=== PATIENT | male | born 1985 | race Caucasian/White ===

== ENCOUNTER 2019-09-23 16:05 | Emergency (ER) | payer OTHER ==
[2019-09-23] MEDS ORDERED: DIPH/PERTUSS(ACELL)/TETANUS VAC/PF 0.5 ML SYR (>=10YO) IM ONE (16:17)
[2019-09-23] MEDS ORDERED: HYDROCODONE/ACETAMINOPHEN 5-325 MG TABLET PO ONE (16:17)
--- NOTE | 2019-09-23 16:20 | ER Document Report ---
ED Medical Screen (RME) - General Chief Complaint: Hand Injury Stated Complaint: RIGHT HAND INJURY/FAN BLADE SLICES Time Seen by Provider: 09/23/19 16:16 Primary Care Provider: TARA ARIAS MD [Primary Care Provider] - Follow up as needed Mode of Arrival: Ambulatory Information source: Patient Notes: HPI; 33-year-old male no previous medical problems presents emergency room after cutting his right hand and right thumb on a fan blade at work. Bleeding is persistent. Unknown last tetanus shot. Patient is right-handed. PE: Alert and oriented x3, anxious, there is a laceration over the dorsal mid aspect of the right hand. There is also deformity of the right thumb unable to fully visualize the laceration to the right thumb. Positive right radial pulse. I have greeted and performed a rapid initial assessment of this patient. A comprehensive ED assessment and evaluation of the patient, analysis of test results and completion of the medical decision making process will be conducted by additional ED providers. I have specifically instructed the patient or family members with the patient to immediately return to any nursing staff should anything change in the patient's condition or with their chief complaint. TRAVEL OUTSIDE OF THE [place] IN LAST 30 DAYS: No - Related Data Allergies/Adverse Reactions: No Known Allergies Allergy (Verified 01/10/14 16:31) Past Medical History - Past Medical History Cardiac Medical History: Reports: Hx Hypercholesterolemia, Hx Hypertension Denies: Hx Congestive Heart Failure, Hx Heart Attack Pulmonary Medical History: Denies: Hx Asthma, Hx Bronchitis, Hx COPD, Hx Pneumonia, Hx Tuberculosis Neurological Medical History: Denies: Hx Seizures, Hx Parkinson's Disease Renal/ Medical History: Denies: Hx Benign Prostatic Hyperplasia, Hx End Stage Renal Disease, Hx Kidney Stones GI Medical History: Denies: Hx Cirrhosis, Hx Gastroesophageal Reflux Disease, Hx Ulcer Musculoskeltal Medical History: Denies Hx Arthritis, Denies Hx Multiple Sclerosis Psychiatric Medical History: Denies: Hx Bipolar Disorder, Hx Depression, Hx Schizophrenia Past Surgical History: Reports: Hx Pancreatic Surgery - right leg, Hx TonsillectomyComment Only: Hx Orthopedic Surgery - tibal nail, plates and screws in R leg. - Immunizations Hx Diphtheria, Pertussis, Tetanus Vaccination: Yes Doctor's Discharge - Discharge Referrals: TARA ARIAS MD [Primary Care Provider] - Follow up as needed
--- NOTE | 2019-09-23 17:01 | RADIOLOGY REPORT (SQ) ---
EXAM DESCRIPTION: HAND RIGHT 3 VIEWS IMAGES COMPLETED DATE/TIME: 09/23/2019 4:47 pm REASON FOR STUDY: laceration/injury COMPARISON: None. EXAM PARAMETERS: NUMBER OF VIEWS: Three views. TECHNIQUE: AP, lateral and oblique radiographic images acquired of the right hand. LIMITATIONS: Bandage material overlies the hand. FINDINGS: MINERALIZATION: Normal. BONES: No acute fracture or dislocation. No worrisome bone lesions. JOINTS: No effusions. SOFT TISSUES: Soft tissue swelling about the hand. No definitive radiopaque foreign body. OTHER: No other significant finding. IMPRESSION: Bandage material overlies the hand and somewhat obscures fine detail. No evidence of ac zuni bony abnormality or radiopaque foreign body. TECHNICAL DOCUMENTATION: JOB ID: [id number] 2010 [email or web address]- All Rights Reserved Reading location - IP/workstation name: [email or web address]
[2019-09-23] MEDS ORDERED: HYDROMORPHONE HCL INJ/PF 2 MG/ML AMPULE IV ONE (17:30)
[2019-09-23] MEDS ORDERED: LIDOCAINE 1% INJ-PF (10 MG/ML) 30 ML SDV INJ ONE (17:37)
--- NOTE | 2019-09-23 18:41 | ER Document Report ---
Doctor's Note Notes: 09/23/19 18:38 7 cm laceration on the dorsal aspect of the right hand proximal to the MCP region at the base of all 4 fingers. There is no visible tendon injury. Anesthesia with 1% lidocaine. There were several bleeding venous structures partially obscuring vision of the wound these were closed with 5 4.0 Vicryl sutures. With good visualization of the wound field that is now bloodless there was no visible tendon injury. No visible foreign bodies. Patient is able to flex and extend the fingers of the right hand. Copious irrigation with 500 mL normal saline and the wound was closed with 12 4.0 ethilon sutures. The laceration on the right thumb just distal to the MCP region is 2.5 cm. There is a visible extensor tendon laceration that appears complete. Patient is unable to abduct the thumb. Anesthesia with 1% lidocaine. Visualization in a bloodless field. No visible foreign bodies. Wound was closed with 5 4.0 Ethilon sutures after copious irrigation with 500 mL normal saline.
--- NOTE | 2019-09-23 19:02 | ER Document Report ---
ED General - General Chief Complaint: Trauma Complaint Stated Complaint: RIGHT HAND INJURY/FAN BLADE SLICES Time Seen by Provider: 09/23/19 16:16 Primary Care Provider: TARA ARIAS MD [Primary Care Provider] - Follow up as needed Mode of Arrival: Ambulatory Information source: Patient TRAVEL OUTSIDE OF THE [place] 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 He complains of severe right hand pain. It is constant. It is sharp and throbbing. It radiates up the right arm. Is worse with movement and better with rest. - Related Data Allergies/Adverse Reactions: No Known Allergies Allergy (Verified 01/10/14 16:31) Past Medical History - General Information source: Patient - Social History Smoking Status: Never Smoker Chew tobacco use (# tins/day): No Frequency of alcohol use: None Drug Abuse: None Family History: Reviewed & Not Pertinent Patient has homicidal ideation: No - Past Medical History Cardiac Medical History: Reports: Hx Hypercholesterolemia, Hx Hypertension Denies: Hx Congestive Heart Failure, Hx Heart Attack Pulmonary Medical History: Denies: Hx Asthma, Hx Bronchitis, Hx COPD, Hx Pneumonia, Hx Tuberculosis Neurological Medical History: Denies: Hx Seizures, Hx Parkinson's Disease Renal/ Medical History: Denies: Hx Benign Prostatic Hyperplasia, Hx End Stage Renal Disease, Hx Kidney Stones GI Medical History: Denies: Hx Cirrhosis, Hx Gastroesophageal Reflux Disease, Hx Ulcer Musculoskeletal Medical History: Denies Hx Arthritis, Denies Hx Multiple Sclerosis Psychiatric Medical History: Denies: Hx Bipolar Disorder, Hx Depression, Hx Schizophrenia Past Surgical History: Reports: Hx Pancreatic Surgery - right leg, Hx TonsillectomyComment Only: Hx Orthopedic Surgery - tibal nail, plates and screws in R leg. - Immunizations Hx Diphtheria, Pertussis, Tetanus Vaccination: Yes Review of Systems - Review of Systems Constitutional: denies: Chills, Fever Cardiovascular: denies: Chest pain, Palpitations Respiratory: denies: Cough, Short of breath -: Yes All other systems reviewed and negative Physical Exam - Vital signs Vitals: Temp 98.9 F 09/23/19 16:46 Interpretation: Normal - General General appearance: Appears well, Alert - HEENT Head: Normocephalic, Atraumatic Eyes: Normal Pupils: PERRL - Respiratory Respiratory status: No respiratory distress Chest status: Nontender Breath sounds: Normal Chest palpation: Normal - Cardiovascular Rhythm: Regular Heart sounds: Normal auscultation Murmur: No - Abdominal Inspection: Normal Distension: No distension Bowel sounds: Normal Tenderness: Nontender Organomegaly: No organomegaly - Back Back: Normal, Nontender - Extremities General upper extremity: Other - Patient's right hand has a laceration across the metacarpal phalangeal joints of all 4 fingers as well as a laceration across the metacarpal phalangeal joint of the thumb. There is an obvious extensor tendon injury of the thumb. No tendon injury is seen of the metacarpophalangeal joints of the fingers. Patient has good blood flow to all fingers with normal capillary refill. The fingers all have good color. He has some mild but no overt sensory deficits of the fingers and thumb. Patient does have significant range of motion deficiencies of the thumb consistent with his tendon laceration. No foreign body is seen. General lower extremity: Normal inspection, Nontender, Normal color, Normal ROM, Normal temperature, Normal weight bearing. No: Monster's sign - Neurological Neuro grossly intact: Yes Cognition: Normal Orientation: AAOx4 Meghan Coma Scale Eye Opening: Spontaneous Meghan Coma Scale Verbal: Oriented Meghan Coma Scale Motor: Obeys Commands Meghan Coma Scale Total: 15 Speech: Normal Motor strength normal: LUE, RUE, LLE, RLE Sensory: Normal - Psychological Associated symptoms: Normal affect, Normal mood - Skin Skin Temperature: Warm Skin Moisture: Dry Skin Color: Normal Course - Re-evaluation Re-evalutation: 09/23/19 18:59 Patient has an extensive laceration of the hand and thumb with the extensor tendon injury. Please see separate procedure note done by the APC. I have discussed the case with the orthopedic surgeon who will see the patient in the office. - Vital Signs Vital signs: Temp Pulse Resp BP Pulse Ox 98.9 F 09/23/19 16:46 Procedures - Immobilization Right Thumb Time completed: 19:00 Pre-Proc Neuro Vasc Exam: Abnormal Immobilizer type: Finger protection Performed by: RN Post-Proc Neuro Vasc Exam: Abnormal, Unchanged from pre-exam Alignment checked and good: Yes Discharge - Discharge Clinical Impression: Laceration of extensor muscle and tendon of thumb at wrist and hand level Hand laceration Qualifiers: Encounter type: initial encounter Foreign body presence: without foreign body Laterality: right Qualified Code(s): S61.411A - Laceration without foreign body of right hand, initial encounter Thumb laceration Qualifiers: Encounter type: initial encounter Damage to nail status: with damage Foreign body presence: without foreign body Laterality: right Qualified Code(s): S61.111A - Laceration without foreign body of right thumb with damage to nail, initial encounter Condition: Stable Disposition: HOME, SELF-CARE Instructions: Oral Narcotic Medication ([facility]), Tetanus Immunization Given ([facility]), Prophylactic Antibiotic ([facility]), Laceration Care ([facility]) Additional Instructions: Please call Dr. Price first thing in the morning to arrange for follow-up to have your thumb tendon repaired. Prescriptions: Cephalexin [Keflex] 500 mg PO QID 7 Days #28 capsule Hydrocodone/Acetaminophen [[place] 5-325 mg Tablet] 1 tab PO Q6 PRN 3 Days #12 tablet PRN Reason: Forms: Return to Work Referrals: TARA ARIAS MD [Primary Care Provider] - Follow up as needed TJ PRICE MD [ACTIVE PROVISIONAL STAFF] - Follow up tomorrow
[2019-09-23] MEDS ORDERED: HYDROCODONE/ACETAMINOPHEN 5-325 MG (6 TAB/ER DISP) PO PRN (19:09)
[2019-09-23 19:12] VITALS: BP 145/81
== END 2019-09-23 19:49 | disposition home or self-care (01) ==
LOC: ER 16:05
DX: S66.221A Laceration of extensor muscle, fascia and tendon of right thumb at wrist and hand level, initial encounter (principal); S61.411A Laceration without foreign body of right hand, initial encounter; W26.8XXA Contact with other sharp object(s), not elsewhere classified, initial encounter; Y99.0 Civilian activity done for income or pay; E78.00 Pure hypercholesterolemia, unspecified; I10 Essential (primary) hypertension; Z23 Encounter for immunization
CPT/HCPCS: 99283; 90471; 96374; 73130; 90715; 12002; J3490; J1170